=== PATIENT | female | born 1990 | race Caucasian/White ===

== ENCOUNTER → 2017-01-07 | Day surgery (SDC) | payer BC ==
[~2017-01-07] VITALS: Ht 175.2 cm; Wt 113.4 kg
[~2017-01-07] MED LIST: BLISOVI 24 FE1 EACH PO; ESCITALOPRAM OX10 MG PO; HYDROCODONE BIT1 T11 PO; OMNICEF300 MG PO
--- NOTE | ~2017-01-07 | O ---
[place], [place] OPERATIVE NOTE NAME: SAMY RAMOS [facility] #: [id number] UNIT #: [id number] ROOM: DOCTOR: STEW GREEN MD BIRTHDATE: [birth year] DOS: 01/07/2017 PREOPERATIVE DIAGNOSIS: Left lower lip mucocele. POSTOPERATIVE DIAGNOSIS: Left lower lip mucocele. PROCEDURE: Excisional biopsy of mucocele of left lower lip. SURGEON: Dr. Green. ANESTHESIA: General with LMA. BLOOD LOSS: Zero. COMPLICATIONS: None. The patient is being taken to the OR for surgical excision of mucocele, which has been persistent in the left lower lip. DESCRIPTION OF PROCEDURE: Following induction of general anesthesia via LMA the patient was positioned supine on the OR table and draped in standard fashion for oral surgery. The left lower lip was palpated and the subcutaneous mucocele was palpable. A 2 mL of 1% lidocaine with 1:100,000 epinephrine was injected into the gingival labial mucosa overlying the mucocele. An elliptical excision of mucosa was incised. Dissection was continued until the mucocele was encountered and dissected completely free of underlying connective tissue. The excised specimen was submitted to Pathology for histologic analysis. Minor bleeding was controlled with electrical cautery. The wound was closed with interrupted 3-0 Vicryl suture. The patient was awakened and transferred to PACU in satisfactory condition. STEW GREEN MD CM:OPRECORD:OPERATIVE NOTE [id number] STEW GREEN MD 01/08/17 1329 interface
[2017-01-07 10:20] VITALS: BP 110/63
[2017-01-07 11:55] VITALS: BP 151/68
[2017-01-07 12:10] VITALS: BP 151/68
[2017-01-07 12:23] VITALS: BP 138/57
[2017-01-07 12:39] VITALS: BP 134/67
[2017-01-07 12:46] VITALS: BP 120/64
== END | disposition home or self-care (01) ==
LOC: SDC 01-02 14:00
DX: K13.0 Diseases of lips (principal); F41.9 Anxiety disorder, unspecified; K21.9 Gastro-esophageal reflux disease without esophagitis; Z80.9 Family history of malignant neoplasm, unspecified; Z82.49 Family history of ischemic heart disease and other diseases of the circulatory system

== ENCOUNTER → 2020-03-20 | Outpatient (CLI) | payer SELFPAY | END | disposition home or self-care (01) | LOC: COVID19 09:38 | DX: Z20.828 Contact with and (suspected) exposure to other viral communicable diseases (principal) ==

== ENCOUNTER → 2020-06-14 | Outpatient (CLI) | payer OTHER | END | disposition home or self-care (01) | LOC: LAB 09:16 | PROVIDERS: ATTEND Emergency Medicine | DX: Z23 Encounter for immunization (principal) ==